=== PATIENT | female | born 1990 | race African-American/Black ===

== ENCOUNTER 2017-11-11 00:40 | Emergency (ER) | payer BC, OTHER ==
--- NOTE | 2017-11-11 01:17 | Emergency Department Report ---
ED Psych HPI - General Chief Complaint: Psych Stated Complaint: SUICIDAL THOUGHTS Time Seen by Provider: 11/11/17 01:00 Source: patient, EMS Mode of arrival: Ambulatory - History of Present Illness Initial Comments: She is a 27-year-old female presents emergency room for psych evaluation for suicidal ideations. Patient states that she told her that she wanted to kill herself. Patient denies having a plan for her suicidal ideations. Patient states she thinks about killing herself all the time. Patient states that if she wanted to kill her so she could whenever she felt like it. Patient states she is just depressed and Maty feeling her pain. Patient is very upset over being at the hospital wants to go home and states she wants to go home to end it all. -: Sudden Associated Psychiatric Symptoms: depression, suicidal ideation History of same: Yes Quality: constant Improves With: none Worsens With: medication Context: not taking psychiatric Associated Symptoms: denies: confusion, headache, shortness of breath, nausea, vomiting, syncope, insomnia Treatments Prior to Arrival: placed on mental he If Self Harm: admits thoughts of - Related Data Home Medications Medication Instructions Recorded Confirmed Last Taken No Known Home Medications [No 11/11/17 11/11/17 Unknown Reported Home Medications] Allergies Allergy/AdvReac Type Severity Reaction Status Date / Time No Known Allergies Allergy Verified 05/17/15 03:28 ED Review of Systems ROS: Stated complaint: SUICIDAL THOUGHTS Other details as noted in HPI Comment: All other systems reviewed and negative Constitutional: denies: chills, fever Eyes: denies: eye pain, eye discharge, vision change ENT: denies: ear pain, throat pain Respiratory: denies: cough, shortness of breath, wheezing Cardiovascular: denies: chest pain, palpitations Endocrine: no symptoms reported Gastrointestinal: denies: abdominal pain, nausea, diarrhea Genitourinary: denies: urgency, dysuria, discharge Musculoskeletal: denies: back pain, joint swelling, arthralgia Skin: denies: rash, lesions Neurological: denies: headache, weakness, paresthesias Psychiatric: depression, suicidal thoughts. denies: anxiety Hematological/Lymphatic: denies: easy bleeding, easy bruising ED Past Medical Hx - Past Medical History Previous Medical History?: Yes Hx Psychiatric Treatment: Yes - Surgical History Past Surgical History?: No - Family History Family history: no significant - Social History Smoking Status: Unknown if ever smoked Substance Use Type: None - Medications Home Medications: Home Medications Medication Instructions Recorded Confirmed Last Taken Type No Known Home Medications [No 11/11/17 11/11/17 Unknown History Reported Home Medications] ED Physical Exam - General Limitations: No Limitations General appearance: alert, in no apparent distress - Head Head exam: Present: atraumatic, normocephalic - Eye Eye exam: Present: normal appearance - ENT ENT exam: Present: mucous membranes moist - Neck Neck exam: Present: normal inspection - Respiratory Respiratory exam: Present: normal lung sounds bilaterally. Absent: respiratory distress - Cardiovascular Cardiovascular Exam: Present: regular rate, normal rhythm. Absent: systolic murmur, diastolic murmur, rubs, gallop - GI/Abdominal GI/Abdominal exam: Present: soft, normal bowel sounds - Extremities Exam Extremities exam: Present: normal inspection - Back Exam Back exam: Present: normal inspection - Neurological Exam Neurological exam: Present: alert, oriented X3 - Psychiatric Psychiatric exam: Present: normal affect, normal mood, suicidal ideation - Skin Skin exam: Present: warm, dry, intact, normal color. Absent: rash ED Course Vital Signs 11/11/17 01:05 Temperature 98.3 F Pulse Rate 93 H Respiratory 16 Rate Blood Pressure 147/92 [Left] O2 Sat by Pulse 99 Oximetry - Reevaluation(s) Reevaluation #1: 1013 signed. [facility] mental health evaluation. 11/11/17 01:05 Reevaluation #2: She is medically cleared.. patient awaiting transfer to a psychiatric facility. 11/11/17 05:56 ED Medical Decision Making - Lab Data Result diagrams: 11/11/17 01:22 11/11/17 01:22 - Medical Decision Making 27-year-old female that presents to emergency room for suicidal ideations. 1013 was signed patient is awaiting transfer to another psychiatric facility for further evaluation and treatment. - Differential Diagnosis suicidal ideation. Homicidal ideation. Depression. Anxiety. Critical care attestation.: If time is entered above; I have spent that time in minutes in the direct care of this critically ill patient, excluding procedure time. ED Disposition Clinical Impression: Depression, Suicidal ideation Disposition: DC/TX-65 PSY HOSP/PSY UNIT Is pt being admited?: No Does the pt Need Aspirin: No Condition: Stable Time of Disposition: 05:57
[2017-11-11 01:39] LABS: Basophils # (Auto) 0.1 K/mm3 (0.0-0.1); Basophils % (Auto) 0.5 % (0.0-1.8); Eosinophils # (Auto) 0.4 K/mm3 (0.0-0.4); Eosinophils % (Auto) 3.6 % (0.0-4.3); Hematocrit 43.3 % (30.3-42.9); Hemoglobin 14.1 gm/dl (10.1-14.3); Lymphocytes # (Auto) 2.3 K/mm3 (1.2-5.4); Lymphocytes % (Auto) 20.2 % (13.4-35.0); Mean Corpuscular HGB Conc 33 % (30-34); Mean Corpuscular Volume 79 fl (79-97); Monocytes # (Auto) 0.6 K/mm3 (0.0-0.8); Monocytes % (Auto) 5.5 % (0.0-7.3); Platelet Count 259 K/mm3 (140-440); Red Blood Count 5.45 M/mm3 (3.65-5.03); Red Cell Distribution Width 17.6 % (13.2-15.2)
[2017-11-11 01:55] LABS: BUN/Creatinine Ratio 7; Blood Urea Nitrogen 5 mg/dL (7-17); Calcium 9.1 mg/dL (8.4-10.2); Hemolysis Index 6
[2017-11-11 02:02] LABS: Mean Corpuscular Hemoglobin 26 pg (28-32)
[2017-11-11 02:35] LABS: Bilirubin,Urine NEG (Negative); Blood,Urine MOD (Negative); Color,Urine Yellow (Yellow); Mucus,Urine FEW /HPF; Protein,Urine <15 mg/dL mg/dL (Negative); Urobilinogen,Urine < 2.0 mg/dL (<2.0)
[2017-11-11 02:39] LABS: Amphetamine Screen,Urine PRESUMPTIVE NEGATIVE; Benzodiazepines Screen,Urine PRESUMPTIVE NEGATIVE; Cocaine Screen,Urine PRESUMPTIVE NEGATIVE; Methadone Screen,Urine PRESUMPTIVE NEGATIVE; Opiate Screen,Urine PRESUMPTIVE NEGATIVE
[2017-11-11 02:57] LABS: Cannabinoid Screen,Urine PRESUMPTIVE POSITIVE
--- NOTE | 2017-11-11 09:45 | Consultation ---
History of Present Illness - Reason for Consult Consult date: 11/11/17 Reason for consult: Mental Health Evaluation Requesting physician: JOHNNY TORRES III - Chief Complaint Chief complaint: "I am going through things" - History of Present Psychiatric Illness 27-year-old female presents emergency room for psych evaluation for suicidal ideations. Today the patient is calm during the assessment. She stated telling her that she could or may if he leaves her. She was vague about explaining that statement when asked. She stated having marital problems especially with their finances. She acknowledged speaking to her about "the word suicide" the past 3 weeks, but denied having a plan. She stated, "'My life is all messed up." She denies SI/HI's and AVH's. She denies erratic sleep or a poor appetite. She denies any manic episodes in the past. She stated that she is fasting per her bahai until next Monday, 17 Nov 2017. She stated that she cannot eat meat during her fast. She admitted to smoking marijuana, but denies excessive alcohol consumption (etoh). The patient does not want to take any medication, prefer to speak with a therapist. Medications and Allergies Allergies Allergy/AdvReac Type Severity Reaction Status Date / Time No Known Allergies Allergy Verified 05/17/15 03:28 Home Medications Medication Instructions Recorded Confirmed Last Taken Type No Known Home Medications [No 11/11/17 11/11/17 Unknown History Reported Home Medications] Past psychiatric history - Past Medical History Past Medical History: No medical history Past Surgical History: No surgical history - past Psychiatric treatment and history psychiatric treatment history: The patient stated seeing a counselor as an adolescent. Denies a fam psy hx. - Social History Social history: Mental Status Exam - Vital signs Last Vital Signs Temp 98.3 F 11/11/17 01:05 Pulse 93 H 11/11/17 01:05 Resp 16 11/11/17 01:05 BP 147/92 11/11/17 01:05 Pulse Ox 99 11/11/17 01:05 - Exam Narrative exam: MSE: Appearance: calm, cooperative Behavior: regular eye contact Speech: regular rate and tone Mood: "okay, bu" Affect: congruent to mood Thought Process: linear Thought Content: denies SI/HI's and AVH's Motor Activity: sitting up in bed Cognition: A/O x3 Insight: appropriate Judgment: appropriate Results Result Diagrams: 11/11/17 01:22 11/11/17 01:22 Abnormal lab results 11/11/17 11/11/17 11/11/17 Range/Units 01:22 01:22 01:22 WBC (4.5-11.0) K/mm3 RBC (3.65-5.03) M/mm3 Hct (30.3-42.9) % MCH (28-32) pg RDW (13.2-15.2) % Seg Neutrophils % (40.0-70.0) % Seg Neutrophils # (1.8-7.7) K/mm3 Sodium 134 L (137-145) mmol/L Chloride 96.6 L (98-107) mmol/L BUN 5 L (7-17) mg/dL Glucose 108 H (65-100) mg/dL Salicylates < 0.3 L (2.8-20.0) mg/dL Acetaminophen < 5.0 L (10.0-30.0) ug/mL 11/11/17 Range/Units 01:22 WBC 11.4 H (4.5-11.0) K/mm3 RBC 5.45 H (3.65-5.03) M/mm3 Hct 43.3 H (30.3-42.9) % MCH 26 L (28-32) pg RDW 17.6 H (13.2-15.2) % Seg Neutrophils % 70.2 H (40.0-70.0) % Seg Neutrophils # 8.0 H (1.8-7.7) K/mm3 Sodium (137-145) mmol/L Chloride (98-107) mmol/L BUN (7-17) mg/dL Glucose (65-100) mg/dL Salicylates (2.8-20.0) mg/dL Acetaminophen (10.0-30.0) ug/mL All other labs normal. 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 Cannabis Use DO. Today the patient is calm during the assessment. Currently, the patient is fasting. DDx: R/O Bipolar DO, R/O Substance Induced Mood DO Recommendation/Plan: Continue 1013 and gather collateral information to determine proper dispo. Discussed risk/benefits of antidepressants with patient. The patient does not want to take any medication, she prefer therapy. Discussed generalized coping skills with patient.
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
--- NOTE | 2017-11-14 08:53 | Emergency Department Report ---
Blank Doc - Documentation Documentation: I was asked to prepare some discharge instructions by the psychiatric team. The psychiatric team has seen this patient multiple times and has rescinded the patient's temperature is afebrile she is not a danger to herself or others, not displaying any psychosis, and is safe for discharge at this time. The patient is seen, and cooperative and denies any suicidal ideations. She has been given referrals for both primary care and psychiatric outpatient treatment. She has been encouraged to return to the emergency Department with any worsening of her symptoms are any acute distress. No new labs have been ordered lately. Vital signs stable.
[2017-11-14 10:22] VITALS: BP 124/67
== END 2017-11-14 10:10 | disposition home or self-care (01) ==
LOC: ED 00:40
DX: F32.9 Major depressive disorder, single episode, unspecified (principal); F12.10 Cannabis abuse, uncomplicated; Z79.899 Other long term (current) drug therapy
CPT/HCPCS: 36415; 80048; 80307; 81001; 84703; 85025; 99284; G0480; 80320

== ENCOUNTER 2021-05-28 10:23 | Emergency (ER) | payer MEDICAID ==
[2021-05-28] MEDS ORDERED: SODIUM CHLORIDE 0.9% 1000 ML 1,000 ML IV ONE (12:13)
[2021-05-28] MEDS ORDERED: IPRATROPIUM/ALBUTEROL SULFATE 3 ML AMPUL.NEB IH ONE (12:13)
[2021-05-28] MEDS ORDERED: predniSONE 20 MG TAB PO ONE (12:13)
--- NOTE | 2021-05-28 12:16 | Emergency Department Report ---
- General Chief Complaint: Upper Respiratory Infection Stated Complaint: COLD,CONGESTION,CHEST PAIN PUI?: Yes Time Seen by Provider: 05/28/21 11:24 Source: patient Mode of arrival: Ambulatory Limitations: No Limitations - History of Present Illness Initial Comments: 30-year-old female with a history of thyroid disease but no other significant past history, presents to the ER today with complaints of severe cough and URI symptoms. Patient states that symptoms started 2 days ago. She states that she has had a productive cough, with wheezing, chest tightness and pain especially if she coughs, shortness of breath, runny nose, nasal congestion and sore throat. She also reports chills but no fever. She states that she has gone to [place], back in November. She has not taken a test since she got sick. She denies any ill contacts or recent travel. She states that she has been taking [id number] medication without much relief. She does admit to tobacco use. MD Complaint: cough, rhinorrhea, nasal congestion -: Gradual - Related Data Previous Rx's Medication Instructions Recorded Last Taken Type Cetirizine HCl [Zyrtec 10mg tab] 10 mg PO DAILY #30 tablet 03/14/19 Unknown Rx Ketotifen Fumarate [Alaway] 1 drop OP Q6H #10 ml 03/14/19 Unknown Rx Albuterol Mdi (or & Nicu Only) 2 puff IH QID PRN #8.5 gram 05/28/21 Unknown Rx [ProAir HFA Inhaler] Promethazine /Codeine 5 ml PO Q6H PRN #120 ml 05/28/21 Unknown Rx [Phenergan/Codeine 6.25-10 mg/5 ml] predniSONE [Deltasone] 50 mg PO QDAY #4 tab 05/28/21 Unknown Rx Allergies Allergy/AdvReac Type Severity Reaction Status Date / Time No Known Allergies Allergy Verified 05/17/15 03:28 ED Review of Systems ROS: Stated complaint: COLD,CONGESTION,CHEST PAIN Other details as noted in HPI Comment: All other systems reviewed and negative Constitutional: chills Respiratory: cough, shortness of breath, wheezing Cardiovascular: chest pain (tightness and worse with cough) Gastrointestinal: denies: abdominal pain, nausea, diarrhea, constipation, hematemesis, melena, hematochezia Genitourinary: denies: urgency, dysuria, frequency, hematuria, discharge, abnormal menses, dyspareunia Musculoskeletal: denies: back pain, joint swelling, arthralgia, myalgia Skin: denies: rash, lesions, change in color, change in hair/nails, pruritus Neurological: denies: headache, weakness, numbness, paresthesias, confusion, abnormal gait, vertigo Psychiatric: denies: anxiety, depression, auditory hallucinations, visual hallucinations, homicidal thoughts, suicidal thoughts Hematological/Lymphatic: denies: easy bleeding, easy bruising ED Past Medical Hx - Past Medical History Previous Medical History?: Yes Hx Psychiatric Treatment: Yes - Surgical History Past Surgical History?: Yes - Social History Smoking Status: Current Every Day Smoker Substance Use Type: Alcohol, Marijuana - Medications Home Medications: Home Medications Medication Instructions Recorded Confirmed Last Taken Type Cetirizine HCl [Zyrtec 10mg tab] 10 mg PO DAILY #30 tablet 03/14/19 Unknown Rx Ketotifen Fumarate [Alaway] 1 drop OP Q6H #10 ml 03/14/19 Unknown Rx Albuterol Mdi (or & Nicu Only) 2 puff IH QID PRN #8.5 gram 05/28/21 Unknown Rx [ProAir HFA Inhaler] Promethazine /Codeine 5 ml PO Q6H PRN #120 ml 05/28/21 Unknown Rx [Phenergan/Codeine 6.25-10 mg/5 ml] predniSONE [Deltasone] 50 mg PO QDAY #4 tab 05/28/21 Unknown Rx ED Physical Exam - General Limitations: No Limitations General appearance: alert, in no apparent distress - Head Head exam: Present: atraumatic, normocephalic, normal inspection - Eye Eye exam: Present: normal appearance, PERRL, EOMI Pupils: Present: normal accommodation - Neck Neck exam: Present: normal inspection, full ROM. Absent: meningismus - Respiratory Respiratory exam: Present: wheezes (faint ), decreased breath sounds (left lower lung perez ). Absent: respiratory distress, rales, rhonchi, stridor - Cardiovascular Cardiovascular Exam: Present: normal rhythm, tachycardia, normal heart sounds - GI/Abdominal GI/Abdominal exam: Present: soft. Absent: distended, tenderness, guarding, rebound - Neurological Exam Neurological exam: Present: alert, oriented X3, CN II-XII intact, normal gait - Psychiatric Psychiatric exam: Present: normal affect, normal mood - Skin Skin exam: Present: intact ED Course Vital Signs 05/28/21 05/28/21 10:28 14:27 Temperature 98.1 F Pulse Rate 115 H 108 H Respiratory 16 16 Rate Blood Pressure 120/76 Blood Pressure 112/76 [Left] O2 Sat by Pulse 94 98 Oximetry ED Medical Decision Making - Lab Data Result diagrams: 05/28/21 12:50 05/28/21 12:50 - Radiology Data Radiology results: report reviewed Patient: CINDY TURNER MR#: [id number] : 1990 Acct:[id number] Age/Sex: 30 / F ADM Date: 05/28/21 Loc: ED Attending Dr: Ordering Physician: OFELIA SCOTT Date of Service: 05/28/21 Procedure(s): XR chest routine 2V Accession Number(s): [id number] cc: OFELIA SCOTT Fluoro Time In Minutes: CHEST 2 VIEWS INDICATION: SOB/wheezing. COMPARISON: None FINDINGS: Support devices: None. Heart: Within normal limits. Lungs/pleura: No acute air space or interstitial disease. No pneumothorax. Additional findings: None. IMPRESSION: No acute findings. Signer Name: Celso Duong Jr, MD Signed: 05/28/2021 2:20 PM Workstation Name: [id number] Transcribed By: TTR Dictated By: CELSO DUONG JR, MD Electronically Authenticated By: CELSO DUONG JR, MD Signed Date/Time: 05/28/21 1420 DD/ 1419 TD/TT: - Medical Decision Making 1426: Chest x-ray shows nothing acute. CBC shows mild leukocytosis but otherwise labs are unremarkable. Patient reports feeling somewhat better after nebulizer treatment. Repeat chest exam improved and clear to auscultation. Patient repeat vital signs shows improvement of her heart rate after some IV fluids. O2 sat is also 98% at rest. Patient was ambulated by in, and her oxygen saturation maintained at 95%, heart rate was in the 120s, but as likely secondary to her getting nebulizer treatment just prior to ambulation. Patient ambulated without any difficulty and she expressed no symptoms and she did not appear to be in any respiratory distress. Suspect patient symptoms likely related to viral URI/viral bronchitis at this time. I have a very low suspicion for sepsis, PE, unstable angina, or any other emergent conditions warranting any additional testing, or admission at this time. Discussed all lab results, chest x-ray results, suspected diagnosis and treatment plan with patient. She has got her COVID-19 vaccine, but I did recommend that she get an outpatient COVID-19 test because COVID-19 could also be a possible cause of her viral illness. She understands that if her symptoms worsens in any way to return to [facility] ER. Patient expressed understanding of all instructions and agree with plan. Critical care attestation.: If time is entered above; I have spent that time in minutes in the direct care of this critically ill patient, excluding procedure time. ED Disposition Clinical Impression: Acute bronchitis, Upper respiratory infection Disposition: 01 HOME / SELF CARE / HOMELESS Is pt being admited?: No Does the pt Need Aspirin: No Condition: Stable Instructions: Acute Bronchitis, Adult, [id number], Upper Respiratory Infection, Adult, [id number], Acute Bronchitis (ED) Additional Instructions: Recommend taking the prednisone and using albuterol inhaler as prescribed. Take the promethazine with codeine also as prescribed. I know that you did get your COVID-19 vaccine, but COVID-19 is still in the possibility of differential as to the cause of your symptoms so I do recommend that you get an outpatient COVID-19 test. I do recommend that you quarantine until you get the results of that test. I also do recommend that she get an hdny-[id number] pulse oximeter to measure your oxygen and if you notice that your oxygen is dropping below 90 persistently and if any of your symptoms worsens return immediately to the ER. Prescriptions: predniSONE [Deltasone] 50 mg PO QDAY #4 tab Promethazine /Codeine [Phenergan/Codeine 6.25-10 mg/5 ml] 5 ml PO Q6H PRN #120 ml PRN Reason: cough Albuterol Mdi (or & Nicu Only) [ProAir HFA Inhaler] 2 puff IH QID PRN #8.5 gram PRN Reason: Shortness Of Breath Referrals: ANGY ALONSO MD [Staff Physician] - 3-5 Days Forms: Work/School Release Form(ED) Time of Disposition: 14:52
[2021-05-28 13:14] LABS: Basophils % (Auto) 0.3 % (0.0-1.8); Eosinophils # (Auto) 0.2 K/mm3 (0.0-0.4); Eosinophils % (Auto) 1.4 % (0.0-4.3); Hematocrit 42.9 % (30.3-42.9); Hemoglobin 14.6 gm/dl (10.1-14.3); Lymphocytes % (Auto) 8.1 % (13.4-35.0); Mean Corpuscular HGB Conc 34 % (30-34); Mean Corpuscular Volume 81 fl (79-97); Monocytes # (Auto) 0.6 K/mm3 (0.0-0.8); Monocytes % (Auto) 4.4 % (0.0-7.3); Platelet Count 221 K/mm3 (140-440); Red Cell Distribution Width 15.9 % (13.2-15.2)
[2021-05-28 13:49] LABS: Alanine Aminotransferase 9 units/L (7-56); Albumin 4.5 g/dL (3.9-5); Blood Urea Nitrogen 4 mg/dL (7-17); Calcium 9.2 mg/dL (8.4-10.2); Hemolysis Index 3
[2021-05-28 13:51] LABS: BUN/Creatinine Ratio 7
--- NOTE | 2021-05-28 14:24 | XRay Report ---
CHEST 2 VIEWS INDICATION: SOB/wheezing. COMPARISON: None FINDINGS: Support devices: None. Heart: Within normal limits. Lungs/pleura: No acute air space or interstitial disease. No pneumothorax. Additional findings: None. IMPRESSION: No acute findings. Signer Name: Celso Duong Jr, MD Signed: 05/28/2021 2:20 PM Workstation Name: [id number]
[2021-05-28 14:28] VITALS: BP 112/76
== END 2021-05-28 15:06 | disposition home or self-care (01) ==
LOC: ED 10:23
DX: J20.9 Acute bronchitis, unspecified (principal); J06.9 Acute upper respiratory infection, unspecified; R09.81 Nasal congestion; R09.89 Other specified symptoms and signs involving the circulatory and respiratory systems; K13.79 Other lesions of oral mucosa; F17.200 Nicotine dependence, unspecified, uncomplicated
CPT/HCPCS: 36415; 71046; 80053; 85025; 87116; 87430; 96360; 99284; J7030; J7512